=== PATIENT | female | born 1985 | race Caucasian/White ===

== ENCOUNTER 2017-05-08 00:20 | Emergency (ER) | payer OTHER ==
[~2017-05-08] VITALS: Ht 157.5 cm; Wt 70.0 kg
[2017-05-08] MEDS ORDERED: LORAZEPAM 0.5MG TABLET PO ONE (01:45)
[2017-05-08 03:48] VITALS: BP 114/66
== END 2017-05-08 05:11 | disposition home or self-care (01) ==
LOC: ER 00:20
DX: F41.0 Panic disorder [episodic paroxysmal anxiety] (principal)
CPT/HCPCS: 99284